=== PATIENT | female | born 1985 | race Caucasian/White ===

== ENCOUNTER 2023-07-09 17:47 | Emergency (ER) | payer OTHER, SELFPAY ==
[2023-07-09 17:54] VITALS: BP 145/92; PULSE 71; RESP 20; TEMP 36.9; O2SAT 98
--- NOTE | 2023-07-09 18:04 | ED.UPPEXIN ---
HPI - Extremity Injury (Upper) General Chief Complaint: Extremity Injury, Upper Stated Complaint: Right pinky Time Seen by Provider: 07/09/23 17:58 Source: patient and RN notes reviewed Mode of arrival: ambulatory Limitations: no limitations History of Present Illness HPI narrative: Patient presents today complaining of a blistered area to the tip of her right 5th finger has been present for the last 2 weeks. Patient is unsure of the origin of this blister, but denies any known injury or trauma to the finger. She reports some pain with pressure to the area, but denies pain otherwise. Today, she took off some gloves at work and states that the area started to bleed in became larger, and she wanted to come in for evaluation. Related Data Home Medications Medication Instructions Recorded Confirmed hydroxychloroquine 200 mg tablet mg PO 07/09/23 levothyroxine 50 mcg tablet mcg 07/09/23 sulfasalazine 500 mg tablet 07/09/23 Allergies Allergy/AdvReac Type Severity Reaction Status Date / Time chromium Allergy Unknown Verified 03/03/18 11:06 gold Au 198 Allergy Unknown Verified 03/03/18 11:06 Cockroach Allergy Unknown Uncoded 03/03/18 11:06 Dust Allergy Unknown Uncoded 03/03/18 11:06 RAGWEED Allergy Unknown Uncoded 03/03/18 11:06 [place] Tree Allergy Unknown Uncoded 03/03/18 11:06 [place] Tree Allergy Unknown Uncoded 03/03/18 11:06 Review of Systems Review of Systems: CONSTITUTIONAL: Denies body aches, fever, chills, or sweats. EYES: Denies visual changes, redness, or discharge. ENT: Denies rhinorrhea, congestion, sore throat, or otalgia. CARDIOVASCULAR: Denies chest pain, palpitations, or edema. RESPIRATORY: Denies cough or dyspnea. GASTROINTESTINAL: Denies abdominal pain, nausea, vomiting, or diarrhea. GENITOURINARY: Denies dysuria or hematuria. SKIN: + right 5th finger blister MUSCULOSKELETAL: Denies back pain, joint pain, or myalgia. NEUROLOGIC: Denies headache, numbness, tingling, or weakness. PSYCH: Denies depression or anxiety. PMFSH Comments At time of signature, I have reviewed and agree with nursing past medical, surgical, social and family history unless otherwise noted. Please see nursing chart for further information. There is no relevant family history pertinent to the presenting complaint Exam Narrative: GENERAL: Well-appearing, well-nourished, and in no acute distress. HEAD: Normocephalic, atraumatic. EYES: EOMI. No redness or drainage. Conjunctivae normal. ENT: Mucous membranes pink and moist. NECK: Normal AROM. . CHEST: No respiratory distress. EXTREMITIES: Right 5th finger:0.5cm round raised blood filled vesicle to the tip of the finger that extends under the finger nail. Fluctuant. Mildly tender to palpation. No surrounding erythema or induration noted. No subungual abscess or hematoma noted. Distal sensation intact. Capillary refill normal. Full range of motion of the finger. SKIN: Warm, dry, no rash. Capillary refill normal. Normal skin turgor. NEURO: No focal deficits. Alert and oriented x3. Gait steady. PSYCH: Normal affect. No signs of depression or anxiety. Course Course Level of Care: Express Care Visit Vital Signs Vital signs: Vital Signs Temperature 98.5 F 07/09/23 17:54 Pulse Rate 71 07/09/23 17:54 Respiratory Rate 20 07/09/23 17:54 Blood Pressure 145/92 H 07/09/23 17:54 Pulse Oximetry 98 07/09/23 17:54 Oxygen Delivery Room Air 07/09/23 17:54 Temperature 98.5 F 07/09/23 17:54 Pulse Rate 71 07/09/23 17:54 Respiratory Rate 20 07/09/23 17:54 Blood Pressure 145/92 H 07/09/23 17:54 Pulse Oximetry 98 07/09/23 17:54 Oxygen Delivery Room Air 07/09/23 17:54 Reviewed Procedures Abscess I/D hand: Date of Incision: 07/09/23 Time of Incision: 18:30 Side (if applicable): right Technique: incised with #11 blade Abcess I&D Additional Comments: Tiny incision made with scalpel.
== END 2023-07-09 18:53 | disposition home or self-care (01) ==
PROVIDERS: Emergency Provider Nurse Practitioner; PCP Physician Assistant
DX: L98.9 Disorder of the skin and subcutaneous tissue, unspecified (principal)
CPT/HCPCS: 10140; 99212; G0463

== ENCOUNTER 2023-07-16 16:46 | Emergency (ER) | payer OTHER, SELFPAY ==
[2023-07-16 16:52] VITALS: BP 159/89; PULSE 73; RESP 14; TEMP 37.1; O2SAT 100
--- NOTE | 2023-07-16 17:08 | ED.GENADULT ---
HPI - General Adult General Chief complaint: Skin/Abscess/Foreign Body Stated complaint: Suture Removal Source: patient, RN notes reviewed and old records reviewed Mode of arrival: ambulatory Limitations: no limitations History of Present Illness HPI narrative: 37 year female presents to [facility] for suture removal. Patient has 1 suture in right 5th fingernail. Patient states was seen here on 07/08 and had blood blister with that suture placed. Patient denies any issues. Patient states area is healing well. Related Data Home Medications Medication Instructions Recorded Confirmed levothyroxine 50 mcg tablet 50 mcg PO DAILY 07/09/23 07/16/23 sulfasalazine 500 mg tablet 500 mg PO DAILY 07/09/23 07/16/23 Allergies Allergy/AdvReac Type Severity Reaction Status Date / Time chromium Allergy Unknown Gastrointestinal Verified 07/16/23 17:00 Upset gold Au 198 Allergy Unknown Gastrointestinal Verified 07/16/23 17:00 Upset Cockroach Allergy Unknown Unknown Uncoded 07/16/23 17:00 Dust Allergy Unknown Unknown Uncoded 07/16/23 17:00 RAGWEED Allergy Unknown Unknown Uncoded 07/16/23 17:00 [place] Tree Allergy Unknown Unknown Uncoded 07/16/23 17:00 [place] Tree Allergy Unknown Unknown Uncoded 07/16/23 17:00 Review of Systems Constitutional: Constitutional: Reports no additional constitutional complaints, Denies body ache(s), Denies chills, Denies fatigue, Denies fever(s) and Denies headache(s) Eyes: Eyes: Reports no additional eye complaints and Denies blurry vision ENT: Reports system reviewed and no additional complaints, except as documented, Denies vertigo, Denies dizziness, Denies ear discharge, Denies otalgia, Denies facial pain, Denies headache(s), Denies nasal congestion, Denies nasal discharge, Denies sinus pain, Denies sinus pressure and Denies sore throat Cardiovascular: Cardiovascular: Reports no additional cardiovascular complaints, Denies chest pain, Denies chest pain at rest, Denies rapid heart rate and Denies dyspnea Respiratory: Respiratory: Reports no additional respiratory complaints, Denies chest congestion, Denies cough, Denies pain on inspiration, Denies pain with cough and Denies dyspnea Gastrointestinal: Gastrointestinal: Denies abdominal pain, Denies diarrhea, Denies nausea and Denies vomiting Integumentary/Breasts: Skin/Breast: Denies rash and Reports wounds Neurologic: Reports system reviewed and no additional complaints, except as documented, Denies vertigo, Denies dizziness and Denies headache(s) Endocrine: Endocrine: Denies fatigue PMFSH Comments At the time of my signature, I reviewed and agree with the nursing past medical, surgical, social, and family history. There is no relevant family history pertinent to the patient complaint. Exam Const: General: cooperative, healthy appearing, no acute distress and well nourished Nutritional Appearance: well nourished Orientation/consciousness: patient oriented x3 Limitations: no limitations HENMT: Head: normal to inspection and normocephalic Ears: external ears normal Face/Nose/Sinus: normal facial exam Face and sinus: normal facial exam Mouth: Yes Normal oral and palatal mucosa present, Yes oropharynx normal and Yes moist mucous membranes Eyes: General: appearance normal, both eyes and all related structures Sclera: sclerae normal Pupils: Equal, round and reactive pupils present Resp: Effort & Inspection: normal respiratory effort, able to speak in complete sentences, no audible wheezes, no cough, no respiratory distress and no retractions Skin: General skin exam: normal color and no rashes or lesions noted Other: 1 suture removed from right 5th finger nail Neuro: General: patient oriented x3 Cranial nerves: Yes Equal, round and reactive pupils present Psych: Appearance: grossly normal Mental Status: mental status grossly normal Speech and movement: Normal speech and movement present Affect: normal affect Course Course
== END 2023-07-16 17:17 | disposition home or self-care (01) ==
PROVIDERS: Emergency Provider Registered Nurse; PCP Physician Assistant
DX: S61.316D Laceration without foreign body of right little finger with damage to nail, subsequent encounter (principal); X58.XXXD Exposure to other specified factors, subsequent encounter; M19.90 Unspecified osteoarthritis, unspecified site; E03.9 Hypothyroidism, unspecified
CPT/HCPCS: 99211; G0463

== ENCOUNTER → 2023-08-13 16:22 | Outpatient (REF) | payer OTHER, SELFPAY | LOC: ANHLAB 16:22 | PROVIDERS: PCP Physician Assistant; Visit Provider Physician Assistant Surgical | DX: L98.0 Pyogenic granuloma (principal) | CPT/HCPCS: 88305 ==

== ENCOUNTER 2023-10-24 00:55 | Day surgery (SDC) | payer OTHER, SELFPAY ==
--- NOTE | 2023-10-17 12:58 | PC.NURSE ---
Report to the Outpatient Waiting Room, entrance under the green pavilion located off [facility], at time _1000_ on date _10/24/23_. Planned Procedure Time: _1200__. Time changes happen often and if your time is changed the preop area will call you the afternoon before. - You and your visitor will be asked to self-screen and do not enter if you have any COVID symptoms. - A mask is optional within the hospital at this time. Patients may have clear liquids (water, carbonated beverages, clear teas, apple juice) until 3 hours prior to surgery with a maximum of 20 ounces. - No food from midnight until time of surgery - Infants may have breast milk until 4 hours before surgery, infant formula 6 hours prior to surgery. - Children will be allowed to drink immediately following surgery. If applicable, please bring a bottle or sippy cup to assist with drinking. Juice, water, soda, and popsicles are readily available. For infants on formula, please bring formula the day of surgery. Pacifiers are allowed. Take the following medications with a SIP of water the morning of surgery: _Synthroid__ DO NOT STOP ANY OF YOUR OTHER PRESCRIPTION MEDICATIONS PRIOR TO SURGERY ?EXCEPT THE FOLLOWING Medications to discontinue per physician __vitamins or supplements 3 days prior to surgery___ Date to take last dose Please no make-up, nail hungarian, hairspray, perfume, deodorant, or body powder the day of surgery. No jewelry (including any body piercings) or valuables the day of surgery, leave them at home. Please take a shower or bath the night before, or the morning of, surgery with an antibacterial soap. Wear comfortable, loose fitting clothing. Children are encouraged to wear pajamas. - Jewelry must be removed prior to entering the operating room. Rings and piercings that are not removed may be cut off. - The hospital will not accept responsibility for valuables. - Please leave all valuables, including medications, at home the day of surgery. If you are going home after surgery, a licensed courtesy bus driver must drive you home. - NO public transportation without another adult if you receive anesthesia. - We recommend that an adult stay with you for 24 hours following discharge. - We also recommend that you do not drive, make important decision, drink alcoholic beverages, or take any drugs that were not prescribed by your health care provider for at least 24 hours after your discharge time. For Pediatric surgeries, we recommend two adults accompany the child home. Follow any additional instructions given to you from your surgeon. If you or anyone in your household have experienced Covid symptoms in the past week, please notify your surgeon or the nurse liaison at the phone number below for possible testing. Telephone instructions given to _Jose M__and asked if any additional questions and then verbalized understanding. Patient advised to call surgeon office or pre surgery nurse liaison [phone] if any additional questions.
[2023-10-17 13:05] VITALS: BMI 21.9
--- NOTE | 2023-10-24 06:51 | PM.HPGS ---
History of Present Illness History of Present Illness Chief complaint: right finger lesion Narrative: Patient seen and examined in pre-operative holding area. No interval change in medical history or symptoms. Patient recalls previous discussion of benefits and alternatives to procedure. Continues to desire to proceed with right small finger pyogenic granuloma, possible nail plate removal, possible adjacent tissue transfer possible skin graft . Reviewed procedure, post-op expectations and risks including but not limited to bleeding, infection, injury to tendon/nerve/vessel, decreased hand function, stiffness, RSD, no change or worsening of symptoms, donor site complications, partial/total graft/flap loss, failure of nailplate to regrown, recurrence. I discussed the possible use of assistants and their participation in the case. Patient stated understanding and signed the consent form wishing to proceed. Review of Systems Review of Systems: All systems reviewed & are unremarkable except as noted in HPI and below PMFSH Social History Social History (Updated 08/13/23 @ 14:50 by Nell Yancey, [facility]) Smoking status: Never smoker Alcohol intake: former Alcohol use details: only drinks 1-2 times a year Substance use: never Substance use type: does not use Do You Feel Safe in your Home?: Yes Lack of Transportation: No Lack of Food: Never True Current Housing: Decline to Answer Concerned About Future Housing: Decline to Answer Difficulty Paying Gas/Electric Bills: Decline to Answer Difficulty Paying for Meds: Decline to Answer Currently Unemployed: Decline to Answer Education: Decline to Answer Difficulty w/ Childcare or Family Care: Decline to Answer Living arrangements: alone Spiritual care concerns: No Meds Home Medications and Allergies Home Medications Medication Instructions Recorded Confirmed Type levothyroxine 50 mcg tablet 50 mcg PO DAILY 07/09/23 10/17/23 History sulfasalazine 500 mg tablet 500 mg PO BID 07/09/23 10/17/23 History hydroxychloroquine 100 mg tablet 100 mg PO ONCE 08/13/23 10/17/23 History tramadol 50 mg tablet 50 mg PO Q6H PRN pain #12 tabs 10/24/23 Rx Allergies Allergy/AdvReac Type Severity Reaction Status Date / Time chromium Allergy Severe Rash Verified 10/17/23 12:44 gold Au 198 Allergy Severe Rash Verified 10/17/23 12:44 Cockroach Allergy Intermediate allergies Uncoded 10/17/23 12:44 Dust Allergy Intermediate Allergies Uncoded 10/17/23 12:44 RAGWEED Allergy Intermediate Unknown Uncoded 10/17/23 12:44 [place] Tree Allergy Mild Unknown Uncoded 10/17/23 12:44 [place] Allergy Mild Unknown Uncoded 10/17/23 12:44 Exam Narrative: unchanged Assessment and Plan Assessment and plan (1) Finger lesion: Code(s): L98.9 - Disorder of the skin and subcutaneous tissue, unspecified Status: Acute Assessment and Plan: cont as above
--- NOTE | 2023-10-24 06:51 | W.PM.PROC2 ---
Procedure Note - Detailed Date of Procedure 10/24/23 Pre-op Diagnosis right small finger lesion Post-op Diagnosis Same Procedure Performed right small finger pyogenic granuloma, possible nail plate removal, possible adjacent tissue transfer possible full thickness graft . Surgeon Eric Salguero MD Open Developer Operator jarrell smith pa-c Anesthesia MAC Description of Procedure INFORMED CONSENT: The patient was seen and examined and marked in the pre-op area.? The patient signed the consent form. PROCEDURE IN DETAIL:The patient taken back to OR on the stretcher in supine position. Time out performed with anesthesia, surgeon and staff agreeing on patient's name site and surgery to be performed SCDs were placed on the lower extremities and inflated. A tourniquet was placed on {right} upper extremity and antibiotics given IV After anesthesia administered sedation I injected {4}cc 1%lido and 0.5% marcaine plain for digital block in the palm The?{right upper extremity}?was prepped and draped in sterile fashion the??{right upper extremity} was? exsanguinated with Esmarch bandage and tourniquet inflated to 250mmHg I proceeded with using 15 blade scalpel and freer elevator to elevate distal nailplate off of sterile matrix and resected the distal portion of the nail til I was able to visualize what appeared like the whole base of the mass protruding from the hyponychium. Now having full visualization of affected tissue and lesion I proceeded with using 15 blade scalpel excise this mass down to periosteum of tip of distal phalanx. I irrigated with normal saline and cauterized the base of excision with bipolar cautery. In order to achieve closure of this defect I made back cuts radially and ulnarly at the nail fold excising burrows triangles and used litter scissors to elevate a volar advancement flap. This flap was then advancd and sutured to nailplate with 5-0 vicryl suture. The remaining skin incisions were also closed with 5-0 vicryl. A dressing of xeroform, 4x4, subha, and tube gauze was applied for patient safety, security, and comfort and secured with an lópez bandage after the tourniquet was let down noting the hand was warm and well perfused. The patient was then awaken from anesthesia and transferred to the recovery room in stable condition.? Complications - none EBL- 0cc Disposition - home in stable conditions jarrell smith pa-c was essential for positioning, retraction, closure and dressing placement [facility] Billing Surgery - Charge Forward: Surgery Billing ([id number] same for jarrell palm )
[2023-10-24] MEDS: LIDOCAINE HCL 1% LOCAL INJ 20 ML VIAL 10 ML INFILTRATE (08:51)
[2023-10-24 10:00] VITALS: BP 138/83; PULSE 77; RESP 16; TEMP 37.3; O2SAT 100
[2023-10-24 10:05] VITALS: BMI 21.8
[2023-10-24] MEDS: LACTATED RINGERS 1,000 ML 30 ML IV CONT (10:30)
[2023-10-24 10:47] LABS: BEDSIDEPREGUCG Negative
--- NOTE | 2023-10-24 11:21 | WPDANESEPPF ---
Anes - Initial Pre Proc Eval Procedure: Operation Date: 10/24/23 12:00 Proposed Procedures p Excision Right Small Finger Mass Lesion, Possible Adjacent Tissue Transfer Flap/Graft - Eric Salguero MD Date/Time: 10/24/23 11:21 Surgeon: Eric Salguero MD Pre Op Diagnosis: right finger lesion Patient Data Age: 38 Gender: F Height: 1.59 m Weight: 55.05 kg Last Vital Signs Temp 37.3 C 10/24/23 10:00 Pulse 77 10/24/23 10:00 Resp 16 10/24/23 10:00 BP 138/83 10/24/23 10:00 Pulse Ox 100 10/24/23 10:00 O2 Del Method Room Air 10/24/23 10:00 Allergies Allergy/AdvReac Type Severity Reaction Status Date / Time chromium Allergy Severe Rash Verified 10/24/23 10:57 gold Au 198 Allergy Severe Rash Verified 10/24/23 10:57 Cockroach Allergy Intermediate allergies Uncoded 10/24/23 10:57 Dust Allergy Intermediate Allergies Uncoded 10/24/23 10:57 RAGWEED Allergy Intermediate Unknown Uncoded 10/24/23 10:57 [place] Tree Allergy Mild Unknown Uncoded 10/24/23 10:57 [place] Tree Allergy Mild Unknown Uncoded 10/24/23 10:57 Home Medications Medication Instructions Recorded Confirmed Type levothyroxine 50 mcg tablet 50 mcg PO DAILY 07/09/23 10/17/23 History sulfasalazine 500 mg tablet 500 mg PO BID 07/09/23 10/17/23 History hydroxychloroquine 100 mg tablet 100 mg PO ONCE 08/13/23 10/17/23 History tramadol 50 mg tablet 50 mg PO Q6H PRN pain #12 tabs 10/24/23 Rx Laboratory Tests 10/24/23 10:20 POC Urine HCG, Qual Negative POC Ur Preg QC Yes Patient hx anesthesia problems: none Family hx anesthesia problems: none Results Review: All pre-operative results and documents have been reviewed as part of the pre-operative evaluation. [facility] Past Medical History Medical History (Updated 10/24/23 @ 11:21 by Agustin Gregory MD) Arthritis Hypothyroidism Social History Social History Smoking status: Never smoker Alcohol intake: former Alcohol use details: only drinks 1-2 times a year Substance use: never Substance use type: does not use Do You Feel Safe in your Home?: Yes Lack of Transportation: No Lack of Food: Never True Current Housing: Decline to Answer Concerned About Future Housing: Decline to Answer Difficulty Paying Gas/Electric Bills: Decline to Answer Difficulty Paying for Meds: Decline to Answer Currently Unemployed: Decline to Answer Education: Decline to Answer Difficulty w/ Childcare or Family Care: Decline to Answer Living arrangements: alone Spiritual care concerns: No Anes - Eval Final PreProcedure Day of Procedure 10/24/23 11:21 Patient weight: normal Heart: regular rate and rhythm Lungs: clear to auscultation Airway: Mallampati scale class II Neurological: alert and oriented Last oral intake: >/= 8 hours ASA classification: II Emergent: no Anesthetic plan: proceed Anesthesia type and monitoring: general GIVS and standard monitoring Results Review: All pre-operative results and documents have been reviewed as part of the pre-operative evaluation. Informed Consent: The patient's anesthetic plan and its attendant risks and benefits were discussed with the patient/family/POA. Questions were solicited and answers provided to the satisfaction of the patient/family/POA.
[2023-10-24] MEDS: ceFAZolin 2 GM/D5W 50 ML 2 GM/50 ML BAG IVPB (11:34)
[2023-10-24 12:00] VITALS: BP 121/77; PULSE 79; RESP 20
[2023-10-24 12:30] VITALS: BP 113/76; PULSE 67; RESP 20
[2023-10-24 12:50] VITALS: BP 127/76; PULSE 57; RESP 20
== END 2023-10-24 12:55 | disposition home or self-care (01) ==
PROVIDERS: PCP Physician Assistant; Visit Provider Plastic Surgery
PROC: (CPT 14040; principal; 2023-10-24 12:00)
DX: L98.0 Pyogenic granuloma (principal); E03.9 Hypothyroidism, unspecified
CPT/HCPCS: 14040; 11730; 88304; J0690; J2250; J7120